=== PATIENT | male | born 1980 | race African-American/Black ===

== ENCOUNTER → 2016-08-08 | Outpatient (CLI) | payer BC | LOC: MW.CHFP 13:49 | PROVIDERS: ATTEND Family Medicine | DX: N48.89 Other specified disorders of penis (principal) | CPT/HCPCS: 87491; 87591 ==

== ENCOUNTER → 2016-08-12 | Outpatient (CLI) | payer BC ==
[2016-08-12 11:33] LABS: CHLORIDE,CL 105 mmol/L (98-110); SODIUM,NA 139 mmol/L (136-146)
== END ==
LOC: MW.CHFP 10:21
PROVIDERS: ATTEND Family Medicine
DX: Z00.00 Encounter for general adult medical examination without abnormal findings (principal); Z83.3 Family history of diabetes mellitus
CPT/HCPCS: 36415; 80053; 80061; 83036; 83525; 85027